=== PATIENT | male | born 1965 | race Caucasian/White ===

== ENCOUNTER → 2017-06-24 | Outpatient (CLI) | payer OTHER, MEDICARE ==
--- NOTE | 2017-06-24 14:37 | RAD ---
Indication injury 5 days previously. Persistent pain. AP oblique and lateral views of the left wrist were obtained as well as a navicular view. No bony abnormality is seen
== END | disposition home or self-care (01) ==
LOC: DXRADRC 14:12
PROVIDERS: ATTEND Physician Assistant
DX: M25.532 Pain in left wrist (principal)
CPT/HCPCS: 73110